=== PATIENT | female | born 1940 | race Two or more races ===

== ENCOUNTER 2018-03-31 13:00 | Outpatient (RCR) | payer MEDICARE, BC | END 2018-04-01 | disposition home or self-care (01) | LOC: PTY 13:00 | DX: S92.215D Nondisplaced fracture of cuboid bone of left foot, subsequent encounter for fracture with routine healing (principal); M76.70 Peroneal tendinitis, unspecified leg; M67.00 Short Achilles tendon (acquired), unspecified ankle; X58.XXXD Exposure to other specified factors, subsequent encounter | CPT/HCPCS: 97110; 97140; 97161; G8978; G8979 ==

== ENCOUNTER 2018-04-11 14:43 | Outpatient (RCR) | payer MEDICARE, BC | END 2018-05-02 | disposition home or self-care (01) | LOC: PTY 14:43 | DX: S92.215D Nondisplaced fracture of cuboid bone of left foot, subsequent encounter for fracture with routine healing (principal); M67.00 Short Achilles tendon (acquired), unspecified ankle; M76.70 Peroneal tendinitis, unspecified leg ==

== ENCOUNTER 2018-05-09 09:10 | Outpatient (RCR) | payer MEDICARE, BC | END 2018-06-02 | disposition home or self-care (01) | LOC: PTY 09:10 | DX: S92.215D Nondisplaced fracture of cuboid bone of left foot, subsequent encounter for fracture with routine healing (principal); M67.00 Short Achilles tendon (acquired), unspecified ankle; M76.70 Peroneal tendinitis, unspecified leg ==

== ENCOUNTER 2018-06-08 14:30 | Outpatient (RCR) | payer MEDICARE, BC | END 2018-07-02 | disposition home or self-care (01) | LOC: PTY 14:30 | DX: S92.215D Nondisplaced fracture of cuboid bone of left foot, subsequent encounter for fracture with routine healing (principal); M67.00 Short Achilles tendon (acquired), unspecified ankle; M76.70 Peroneal tendinitis, unspecified leg | CPT/HCPCS: 97110; 97140; G8978; G8979 ==

== ENCOUNTER 2018-08-07 10:15 | Outpatient (RCR) | payer MEDICARE, BC | END 2018-09-01 | disposition home or self-care (01) | LOC: PTY 10:15 | DX: M76.72 Peroneal tendinitis, left leg (principal); M67.02 Short Achilles tendon (acquired), left ankle ==